=== PATIENT | male | born 1960 | race Caucasian/White ===

== ENCOUNTER 2017-08-09 12:48 | Observation (INO) | payer BC, OTHER ==
[2017-08-09 13:14] VITALS: BMI 41.0
--- NOTE | 2017-08-09 15:38 | PDOC ---
History of Present Illness - History of Present Illness Initial Comments: 08/09/17 16:04 The patient is a 57 year old male, with a significant past medical history of scarlet fever (age 21), who presents to the emergency department with fever, sore throat, diffuse rash for a few days. Patient states that he was given Clindamycin from his dentist on the . He was told to take it for 8 days. He had his tooth pulled on the . He noticed that he became very itchy and rash-like so he saw Dr. Yañez who gave him Atarax for his thrush. Patient states that 5 days ago, he began experiencing flu-like symptoms such as lethargic, chills, diaphoresis, sore throat, nasal congestion, runny nose, spitting up white phlegm. He states that 3 days ago he noticed a non pruritic rash that broke out on his extremities while he was taking a shower. He also admits to experiencing pins and needles on the bottom of his feet and sligh subjective fever. He says these symptoms are similar to his scarlet fever that he had when he was younger. He denies any recent headache or dizziness. He denies any recent nausea, vomit, diarrhea or constipation. He denies any recent chest pain or shortness of breath. He denies any recent dysuria, frequency, urgency or hematuria. Social Hx: Current every day smoker PCP: Julian Yañez <Chelsea Corral - Last Filed: 08/09/17 16:28> <Jony Torres - Last Filed: 08/09/17 16:37> - General Chief Complaint: Cold Symptoms Stated Complaint: PCP SENT Time Seen by Provider: 08/09/17 14:02 Past History <Chelsea Corral - Last Filed: 08/09/17 16:28> - Past Medical History COPD: No HTN: Yes Hypercholesterolemia: Yes - Suicide/Smoking/Psychosocial Hx Smoking History: Current every day smoker Have you smoked in the past 12 months: Yes Number of Cigarettes Smoked Daily: 10 Information on smoking cessation initiated: No <Jony Torres - Last Filed: 08/09/17 16:37> - Past Medical History Allergies/Adverse Reactions: Allergies Allergy/AdvReac Type Severity Reaction Status Date / Time clindamycin Allergy Hives Verified 08/09/17 13:09 Penicillins Allergy Rash Verified 08/09/17 13:09 Review of Systems - Review of Systems Constitutional: Yes: Chills, Fever, Weakness HEENTM: Yes: Nose Congestion, Throat Swelling Respiratory: No: Cough, Shortness of Breath Cardiac (ROS): No: Chest Pain ABD/GI: No: Diarrhea, Vomiting : No: Dysuria, Hematuria Integumentary: Yes: Rash Neurological: No: Headache All Other Systems: Reviewed and Negative <Jony Torres - Last Filed: 08/09/17 16:37> *Physical Exam - Vital Signs Last Vital Signs Temp Pulse Resp BP Pulse Ox 99.5 F 86 19 121/63 96 08/09/17 13:09 08/09/17 13:09 08/09/17 13:09 08/09/17 13:09 08/09/17 13:09 - Physical Exam Comments: 08/09/17 16:04 GENERAL: The patient is awake, alert, and fully oriented, in no acute distress. HEAD: Normal with no signs of trauma. EYES: Pupils equal, round and reactive to light, extraocular movements intact, sclera anicteric, conjunctiva clear with no pallor. ENT: Ears normal, nares patent, oropharynx clear without exudates. Moist mucous membranes. NECK: Normal range of motion, supple without lymphadenopathy, JVD, or masses. LUNGS: Breath sounds equal, clear to auscultation bilaterally. No wheeze/ crackles. HEART: Regular rate and rhythm, normal S1 and S2 without murmur or rub. ABDOMEN: Soft/nontender/nondistended. BS wnl. No guarding or rebound. No palpable masses. No hepatosplenomegaly. EXTREMITIES: Normal range of motion, no edema. No clubbing or cyanosis. No cords, erythema, or tenderness. NEUROLOGICAL: 5/5 strength x4.Cranial nerves II through XII grossly intact. Normal speech, normal gait. PSYCH: Normal mood, normal affect. SKIN: Macular semi-confluent, blanching rash diffusely head, neck, and torso. Warm, Dry, normal turgor, no lesions noted. <Chelsea Corral - Last Filed: 08/09/17 16:28> - Vital Signs Last Vital Signs Temp Pulse Resp BP Pulse Ox 99.5 F 86 19 121/63 96 08/09/17 13:09 08/09/17 13:09 08/09/17 13:09 08/09/17 13:09 08/09/17 13:09 <Jony Torres - Last Filed: 08/09/17 16:37> Heart Score/ECG Review #1 ECG reviewed & interpreted by me at: 16:25 General ECG Interpretation: Sinus Rhythm, Normal Rate (81), Normal Intervals ( IRBBB, qrs 108, qtc 434), No acute ischemic changes <Jony Torres - Last Filed: 08/09/17 16:37> ED Treatment Course - ADDITIONAL ORDERS Additional order review: 08/09/17 15:00 Group A Strep Rapid Antigen - Final Throat - RADIOLOGY Radiograph Interpretation: 08/09/17 16:28 Portable chest x-ray impression: Possible minimal infiltrates in the left mid-lung. Follow-up is needed Reported by: Claritza Waldron <Chelsea Corral - Last Filed: 08/09/17 16:28> - LABORATORY CBC & Chemistry Diagram: 08/09/17 15:50 08/09/17 15:50 - ADDITIONAL ORDERS Additional order review: 08/09/17 15:00 Group A Strep Rapid Antigen - Final Throat - RADIOLOGY Radiology Studies Ordered: Category Date Time Status CHEST X-RAY PORTABLE* [RAD] Stat Radiology 08/09/17 15:08 Ordered <Jony Torres - Last Filed: 08/09/17 16:37> Medical Decision Making - Medical Decision Making 08/09/17 15:35 A portion of this note was documented by scribe services under my direction. I have reviewed the details of the note, within reason, and agree with the documentation with the following case summary and management plan written by me. 57-year-old male with history of scarlet fever at age 21, now sent for admission for further evaluation of febrile syndrome with rash for the last few days. Patient had been treated in with 8 day course of clindamycin for dental infection, subsequently developed a rash with generalized malaise and fever/ chills/night sweats, rash not relieved with Atarax and upon follow-up today with Dr. Yañez, was sent for further evaluation, sepsis workup, and ID eval. VS as noted diffuse macular rash neuro intact 57y/o M with fever and rash. generally well appearing with normal VS. sepsis workup initiated admit to Dr. Yañez, accepted for obs med/surg <Jony Torres - Last Filed: 08/09/17 16:37> *DC/Admit/Observation/Transfer - Attestations Scribe Attestion: 08/09/17 16:06 Documentation prepared by Chelsea Corral, acting as medical equipment repairer for Jony Torres MD. <Chelsea Corral - Last Filed: 08/09/17 16:28> - Discharge Dispostion Admit: Yes <Jony Torres - Last Filed: 08/09/17 16:37> Diagnosis at time of Disposition: Macular erythematous rash Fever Qualifiers: Fever type: unspecified Qualified Code(s): R50.9 - Fever, unspecified - Discharge Dispostion Condition at time of disposition: Fair
[2017-08-09 16:42] LABS: VENOUS BLOOD GAS HCO3 23.7 meq/L (19-25); VENOUS PH 7.41 (7.32-7.42)
[2017-08-09] MEDS ORDERED: SODIUM CHLORIDE 1,000 ML IV ONE (16:46)
[2017-08-09 16:49] LABS: BASOPHIL 0.4 % (0-2.0); EOSINOPHIL 0.6 % (0-4.5); MCH 30.5 pg (25.7-33.7); MCHC 34.3 g/dl (32.0-35.9); MEAN CELL VOLUME 88.9 fl (80-96); MEAN PLT VOLUME 8.2 fl (7.5-11.1); NEUTROPHILS 74.8 % (42.8-82.8); PLATELET COUNT 344 K/MM3 (134-434); RDW 13.5 % (11.9-15.9); WHITE BLOOD COUNT 12.8 K/mm3 (4.0-10.0)
[2017-08-09 16:59] LABS: INR 1.12 (0.82-1.09); PROTHROMBIN TIME (PATIENT) 12.6 SEC (9.98-11.88)
[2017-08-09 17:01] LABS: ACTIVATED PTT 32.4 SECONDS (26.9-34.4)
[2017-08-09 17:08] LABS: URINE APPEARANCE CLEAR; URINE BILIRUBIN NEGATIVE (NEGATIVE); URINE BLOOD 1+ (NEGATIVE); URINE COLOR YELLOW; URINE GLUCOSE (UA) NEGATIVE (NEGATIVE); URINE KETONE NEGATIVE (NEGATIVE); URINE NITRITE NEGATIVE (NEGATIVE); URINE PROTEIN NEGATIVE (NEGATIVE); URINE UROBILINOGEN NEGATIVE mg/dL (0.2-1.0)
[2017-08-09] MEDS ORDERED: ALBUTEROL SO4 2.5/IPRATROPIUM 0.5 INH SOL 3 ML VIAL.NEB. NEB PRN (17:16)
[2017-08-09] MEDS ORDERED: ACETAMINOPHEN 325 MG TABLET (FP) PO PRN (17:16)
--- NOTE | 2017-08-09 17:17 | HP ---
Admitting History and Physical - Primary Care Physician PCP: Julian Yañez - Admission Chief Complaint: SOB/FATIGUE/POOR APPETITE/FEVERS History of Present Illness: PATIENT WAS TREATED 5 DAYS AGO WITH ZPAK FOR COUGH/WHEEZING/FEVERS OUTPATIENT , RETURNED TO MY OFFICE TODAY WITH WORSENING COUGH, POOR APPETITE, UNABLE TO EAT OR DRINK FLUIDS. PATIENT HAS A HISTORY OF SCARLET FEVER AND FEELS THE SAME HE DID WHEN HE HAD IT. HISTORY OF HTN, LIPIDEMIA, TOBACCO SMOKER, OBESITY. History Source: Patient - Past Medical History Cardiovascular: Yes: HTN, Hyperlipdemia - Smoking History Smoking history: Current every day smoker Have you smoked in the past 12 months: Yes Aproximately how many cigarettes per day: 10 Home Medications - Allergies Allergies/Adverse Reactions: Allergies Allergy/AdvReac Type Severity Reaction Status Date / Time clindamycin Allergy Hives Verified 08/09/17 13:09 Penicillins Allergy Rash Verified 08/09/17 13:09 - Home Medications Home Medications: Ambulatory Orders Clopidogrel Bisulfate [Plavix -] 75 mg PO DAILY 08/09/17 Enalapril Maleate 5 mg PO DAILY 08/09/17 Simvastatin [Zocor -] 40 mg PO HS 08/09/17 Review of Systems - Review of Systems Constitutional: reports: Loss of Appetite, Weakness Eyes: reports: No Symptoms HENT: reports: No Symptoms Neck: reports: No Symptoms Cardiovascular: reports: Shortness of Breath Respiratory: reports: Cough, SOB Gastrointestinal: reports: Indigestion Genitourinary: reports: No Symptoms Musculoskeletal: reports: Muscle Cramps, Muscle Weakness Integumentary: reports: Erythema Neurological: reports: No Symptoms Endocrine: reports: No Symptoms Hematology/Lymphatic: reports: No Symptoms Psychiatric: reports: No Symptoms Physical Examination Vital Signs: Vital Signs Temperature 98.7 F 08/09/17 16:54 Pulse Rate 81 08/09/17 16:53 Respiratory Rate 20 08/09/17 16:53 Blood Pressure 109/69 08/09/17 16:53 O2 Sat by Pulse Oximetry (%) 96 08/09/17 16:53 Constitutional: Yes: Moderate Distress Eyes: Yes: WNL HENT: Yes: WNL Neck: Yes: WNL Cardiovascular: Yes: WNL Respiratory: Yes: Cough, Rhonchi Gastrointestinal: Yes: WNL Renal/: Yes: WNL Musculoskeletal: Yes: Muscle Weakness Extremities: Yes: WNL Edema: No Peripheral Pulses WNL: Yes Integumentary: Yes: Erythema, Rash Wound/Incision: Yes: Open to air Neurological: Yes: WNL ...Motor Strength: WNL Psychiatric: Yes: WNL Labs: CBC, BMP 08/09/17 15:50 Imaging - Results Chest X-ray: Report Reviewed Problem List - Problems (1) Lung abnormality Code(s): J98.4 - OTHER DISORDERS OF LUNG (2) Lipidemia Code(s): E78.5 - HYPERLIPIDEMIA, UNSPECIFIED Qualifiers: Hyperlipidemia type: mixed hyperlipidemia Qualified Code(s): E78.2 - Mixed hyperlipidemia (3) High triglycerides Code(s): E78.1 - PURE HYPERGLYCERIDEMIA (4) Hypertension Code(s): I10 - ESSENTIAL (PRIMARY) HYPERTENSION Qualifiers: Hypertension type: essential hypertension Qualified Code(s): I10 - Essential (primary) hypertension (5) Smoker Code(s): F17.200 - NICOTINE DEPENDENCE, UNSPECIFIED, UNCOMPLICATED (6) Fever Code(s): R50.9 - FEVER, UNSPECIFIED Qualifiers: Fever type: unspecified Qualified Code(s): R50.9 - Fever, unspecified (7) Macular erythematous rash Code(s): L53.8 - OTHER SPECIFIED ERYTHEMATOUS CONDITIONS Assessment/Plan BLOOD CULTURES LUNG ABNORMALITY ON CXR CHECK CT SCAN LUNGS PULMONARY EVAL ID CONSULT STEROIDS IV IVF
--- NOTE | 2017-08-09 17:33 | PN ---
Progress Note (short form) - Note Progress Note: ID consult dictated imp/reccd 57 year old man admitted for lethargy and wakness he reports he has not been to work for last 6 days poor appetite, rash on arms and upper legs, "nails on soles of feet" no fevers +cough for 4 days recent course of clindamycin 07/25-to 07/31 had a tooth pulled 08/02 on the became itch saw Dr Yañez on , strep screen negative, given atarax, itchiness went away now notes he has sore throat and cough active smoker no travel no sick contacts PE notable for no conjunctivitis no exudative pharyngitis no adenopathy no oral lesions some patchy maculpapular rash on the forearms, no rash on legs suggest cultures cxray pa and lateral f/u labs - all still pending IVF hold antibiotics no fevers negative strep screen
[2017-08-09 17:51] LABS: ALBUMIN 3.7 g/dl (3.4-5.0); ALK PHOS 70 U/L (45-117); ANION GAP 11 (8-16); BILIRUBIN,TOTAL 0.6 mg/dL (0.2-1.0); CALCIUM 9.3 mg/dL (8.5-10.1); CO2 23 mmol/L (21-32); CPK 205 IU/L (39-308); CREATININE 1.3 mg/dL (0.7-1.3); GLUCOSE,RANDOM 100 mg/dL (74-106); SGPT/ALT 20 U/L (12-78); TOT PROT 7.3 g/dl (6.4-8.2); TROPONIN I < 0.02 ng/ml (0.00-0.05)
[2017-08-09] MEDS ORDERED: methylPREDNISolone NA SUCC 40 MG/1 ML VIAL ONE (18:02)
[2017-08-09 18:07] LABS: SGOT/AST 22 U/L (15-37)
[2017-08-09] MEDS: methylPREDNISolone NA SUCC 40 MG/1 ML VIAL IVPUSH SCH (18:07)
[2017-08-09 20:44] LABS: URINE MUCUS RARE; URINE WBC 1 /hpf (3-5)
[2017-08-09 22:18] LABS: URINE LEUK ESTERASE Negative (NEGATIVE)
[2017-08-09] MEDS: FAMOTIDINE IV 20 MG/12 ML VIAL IVPUSH SCH (23:06)
[2017-08-10] MEDS: methylPREDNISolone NA SUCC 40 MG/1 ML VIAL IVPUSH SCH ×2 (02:07→10:08)
[2017-08-10] MEDS ORDERED: SODIUM CHLORIDE 1,000 ML IV SCH (07:45)
[2017-08-10] MEDS ORDERED: LEVOFLOXACIN 500 MG IVPB 500 MG/100 ML BAG IVPB SCH (10:00)
[2017-08-10] MEDS: FAMOTIDINE IV 20 MG/12 ML VIAL IVPUSH SCH (10:09)
[2017-08-10 11:40] VITALS: TEMP 98.2
[2017-08-10 15:05] VITALS: BP 134/72; PULSE 75
--- NOTE | 2017-08-10 15:11 | DS ---
Physical Examination Vital Signs: Vital Signs Temperature 98.2 F 08/10/17 15:04 Pulse Rate 75 08/10/17 15:04 Respiratory Rate 18 08/10/17 15:04 Blood Pressure 134/72 08/10/17 15:04 O2 Sat by Pulse Oximetry (%) 96 08/10/17 04:00 Constitutional: Yes: No Distress Eyes: Yes: WNL HENT: Yes: WNL Neck: Yes: WNL Cardiovascular: Yes: WNL Respiratory: Yes: Wheezes Gastrointestinal: Yes: WNL Renal/: Yes: WNL Musculoskeletal: Yes: WNL Extremities: Yes: WNL Edema: No Peripheral Pulses WNL: Yes Integumentary: Yes: WNL Wound/Incision: Yes: Clean/Dry Neurological: Yes: WNL ...Motor Strength: WNL Psychiatric: Yes: WNL Labs: CBC, BMP 08/09/17 15:50 08/09/17 15:50 Discharge Summary Reason For Visit: FEVER Current Active Problems Fever (Acute) High triglycerides (Acute) Hypertension (Acute) Lipidemia (Acute) Lung abnormality (Acute) Macular erythematous rash (Acute) Smoker (Acute) Procedures: Principal: CT CHEST Hospital Course: ADMITTED ACUTE PNEUMONIA, TREATED IV ABX STEROIDS IV, CHANGED TOORAL LEVAQUIN AND PREDNISONE. F/U OUTPATIENT Condition: Fair - Instructions Diet, Activity, Other Instructions: LOW FAT/SALT SEE DR SANDS 1 WEEK Disposition: HOME - Home Medications Comprehensive Discharge Medication List: Ambulatory Orders Clopidogrel Bisulfate [Plavix -] 75 mg PO DAILY 08/09/17 Enalapril Maleate 5 mg PO DAILY 08/09/17 Simvastatin [Zocor -] 40 mg PO HS 08/09/17 Acetaminophen [Tylenol .Regular Strength -] 650 mg PO Q6H PRN tablet 08/10/17 Albuterol 2.5/Ipratropium 0.5 [Duoneb -] 1 amp NEB Q6H PRN amp 08/10/17 Levofloxacin [Levaquin] 500 mg PO DAILY #6 tablet 08/10/17 Prednisone [Deltasone -] 20 mg PO DAILY #5 tablet 08/10/17
--- NOTE | 2017-08-10 19:22 | CONS ---
INFECTIOUS DISEASE CONSULTATION DATE OF CONSULTATION: 08/09/2017 REQUESTING PHYSICIAN: Julian Yañez MD HISTORY OF PRESENT ILLNESS: This is a 57-year-old man who presented to the emergency room complaining of lethargy and myalgia for the prior 6 days. Originally, back from the to the , he took some clindamycin for some dental work. The , he had a tooth pulled with much improvement. On the , he started feeling itchy and developed a rash; for which, he was given Atarax. He was noted to have some possible thrush and given some nystatin swish and swallow. He then felt better, but then, several days later, developed weakness and lethargy and cough. He has not been to work for 6 days. He had a strep screen done that was negative. He now notes that he has a rash on the arms and upper legs and feels like there are nails on the soles of his feet. He has had no fever. He has a cough with white sputum for the last 4 days. He is an active smoker. No travel or sick contacts. PAST MEDICAL HISTORY: Notable for hypertension, hyperlipidemia, reports a history of scarlet fever at age 21. MEDICATIONS AT HOME: Include Plavix, enalapril, and Zocor. SOCIAL HISTORY: He lives in [place]. He works as a wheat combine driver. He has no sick contacts. There is no recent travel. His and kids are well. REVIEW OF SYSTEMS: Notable for lethargy and loss of appetite and weakness. He has had no joint swellings. He is monogamous, and he has no sore throat, though he complains of dryness in his mouth. PHYSICAL EXAMINATION: Vital Signs: He is afebrile, temperature is 98.7. Pulse of 81, blood pressure 109/69, respiratory rate is 20. HEENT: He is normocephalic. His eyes are anicteric. He has no exudative pharyngitis. He has no thrush. Neck: He has no cervical lymphadenopathy. Neck is supple. Lungs: Have scattered rhonchi, occasional wheeze. Heart: Regular rate and rhythm. Abdomen: Soft, nontender. Extremities: Without edema. Skin: He has some scattered maculopapular rash on his forearms. He has no rash on his abdomen or back. He has some erythema at the back of his head. He has no conjunctivitis. He has no oral lesions, and he has no adenopathy. DIAGNOSTIC DATA: His labs were all pending at the time of evaluation, and his strep screen is negative. In summary, would suggest at this time that we obtain cultures, get chest x-ray PA and lateral, follow up the labs, IV fluids as he appears dehydrated, with further recommendations to follow based on his clinical course. Case was discussed with Dr. Yañez. Mikey [id number]
--- NOTE | 2017-08-11 07:54 | EKG ---
Test Reason : Blood Pressure : / mmHG Vent. Rate : 081 BPM Atrial Rate : 081 BPM P-R Int : 166 ms QRS Dur : 108 ms QT Int : 374 ms P-R-T Axes : 054 048 042 degrees QTc Int : 434 ms NORMAL SINUS RHYTHM INCOMPLETE RIGHT BUNDLE BRANCH BLOCK BORDERLINE ECG NO PREVIOUS ECGS AVAILABLE Confirmed by MD Alegre Daniel ([id number]) on 08/10/2017 2:58:27 PM Also confirmed by MD Alegre Daniel ([id number]), staff editor ROSY ROMAN ([id number]) on 08/11/2017 7:54:18 AM Referred By: Confirmed By:Rosy Alegre MD
== END 2017-08-10 15:47 | disposition home or self-care (01) ==
LOC: JER 12:48 → JERFT 12:48 → JERBED 15:09 → J5S 20:33
PROVIDERS: ADMIT Family Medicine; ATTEND Family Medicine
PROC: 3E0337Z Introduction of Electrolytic and Water Balance Substance into Peripheral Vein, Percutaneous Approach (ICD-10-PCS; principal; 2017-08-09)
PROC: 3E03329 Introduction of Other Anti-infective into Peripheral Vein, Percutaneous Approach (ICD-10-PCS; 2017-08-09)
PROC: 3E033GC Introduction of Other Therapeutic Substance into Peripheral Vein, Percutaneous Approach (ICD-10-PCS; 2017-08-09)
PROC: 3E0333Z Introduction of Anti-inflammatory into Peripheral Vein, Percutaneous Approach (ICD-10-PCS; 2017-08-09)
DX: J18.9 Pneumonia, unspecified organism (principal); J98.4 Other disorders of lung; I10 Essential (primary) hypertension; E78.5 Hyperlipidemia, unspecified; E78.1 Pure hyperglyceridemia; F17.200 Nicotine dependence, unspecified, uncomplicated
CPT/HCPCS: 36415; 71010-TC; 71020-TC; 71250-TC; 80053; 81003; 81015; 82550; 82553; 82803; 83605; 84484; 85025; 85610; 85651; 85730; 86140; 86850; 86900; 86901; 87040; 87070; 87086; 87430; 93005; 93010; 99285-25; G0378

== ENCOUNTER 2023-07-15 04:13 | Inpatient (IN) | payer BC, OTHER ==
[2023-07-15] MEDS ORDERED: VANCOMYCIN 1,000 MG VIAL (RESTRICTED TO ID ONLY) ONE (08:36)
[2023-07-15] MEDS ORDERED: GENTAMICIN SO4 80 MG/2 ML VIAL ONE (08:36)
[2023-07-15] MEDS ORDERED: LIDOCAINE HCL 1%, 10 MG/ML (20ML VIAL) ONE (08:40)
[2023-07-15] MEDS ORDERED: HEPARIN NA (PORCINE) 5,000 UNITS/ML 1ML VIAL ONE (09:23)
[2023-07-15] MEDS ORDERED: VANCOMYCIN 1,000 MG VIAL (RESTRICTED TO ID ONLY) IVPB ONE (11:00)
[2023-07-15] MEDS ORDERED: ROPIVACAINE HCL 0.5% 30ML VIAL ONE (12:18)
[2023-07-15] MEDS ORDERED: POVIDONE-IODINE OINTMENT 10% - 28.4 GM TUBE TP ONE (14:10)
[2023-07-15] MEDS ORDERED: PROTAMINE SULFATE 50 MG/5 ML VIAL ONE (14:15)
[2023-07-15] MEDS ORDERED: GENTAMICIN SO4 80 MG/2 ML VIAL IVPB ONE (14:16)
[2023-07-15] MEDS ORDERED: ONDANSETRON 4 MG/2 ML VIAL ONE (14:43)
[2023-07-15] MEDS ORDERED: GLYCOPYRROLATE 0.2 MG/1 ML VIAL ONE ×3 (14:43→14:53)
[2023-07-15] MEDS ORDERED: NEOSTIGMINE METHYLSULFATE 0.5 MG/1 ML - 10 ML MDV ONE (14:43)
[2023-07-15] MEDS ORDERED: POVIDONE-IODINE OINTMENT 10% - 28.4 GM TUBE ONE (14:48)
[2023-07-15] MEDS ORDERED: ONDANSETRON 4 MG/2 ML VIAL IVPUSH PRN ×2 (15:24)
[2023-07-15] MEDS ORDERED: HYDROmorphone *PCA* 10MG/50ML DISP.SYRIN ONE (15:52)
[2023-07-15] MEDS: HYDROmorphone *PCA* 10MG/50ML DISP.SYRIN PCA SCH (16:00)
[2023-07-15] MEDS ORDERED: ACETAMINOPHEN INJECTION 100 ML IVPB ONE (16:25)
[2023-07-15] MEDS: ACETAMINOPHEN 1000 MG/100 ML BAG IVPB SCH ×2 (16:30→23:10)
[2023-07-15] MEDS: AZTREONAM 1 GM in DEXTROSE 5%-WATER - 50 ML IVPB SCH (18:00)
[2023-07-15] MEDS: LACTATED RINGERS SOLUTION 1,000 ML IV SCH ×2 (20:56→23:43)
[2023-07-15 21:09] LABS: BASO % 0.2 % (0-2.0); HEMATOCRIT 52.7 % (35.4-49); LYMPH % 2.9 % (8-40); MCH 29.9 pg (25.7-33.7); MCHC 32.3 g/dl (32.0-35.9); MEAN CELL VOLUME 92.4 fl (80-96); MEAN PLT VOLUME 7.8 fl (7.5-11.1); MONO % 10.4 % (3.8-10.2); NEUT % 86.5 % (42.8-82.8); PLATELET COUNT 199 10^3/uL (134-434); RDW 15.3 % (11.9-15.9); WHITE BLOOD COUNT 19.4 K/mm3 (4.0-10.0)
[2023-07-15] MEDS ORDERED: VANCOMYCIN 1,000 MG in DEXTROSE 5%-WATER - 100 ML IVPB SCH (22:00)
[2023-07-15 22:16] VITALS: BMI 29.1
[2023-07-16] MEDS: AZTREONAM 1 GM in DEXTROSE 5%-WATER - 50 ML IVPB SCH ×3 (05:01→23:11)
[2023-07-16] MEDS: LACTATED RINGERS SOLUTION 1,000 ML IV SCH ×4 (05:02→18:25)
[2023-07-16] MEDS ORDERED: ALBUMIN HUMAN 5% 250 ML IV SOLUTION IV ONE (06:55)
[2023-07-16] MEDS ORDERED: ALBUMIN HUMAN 5% 500 ML IV SOLUTION IV ONE (07:15)
[2023-07-16 07:35] LABS: BASO % 0.1 % (0-2.0); HEMATOCRIT 50.4 % (35.4-49); HEMOGLOBIN 16.1 GM/dL (11.7-16.9); LYMPH % 5.1 % (8-40); MCH 29.8 pg (25.7-33.7); MEAN CELL VOLUME 93.1 fl (80-96); MEAN PLT VOLUME 8.2 fl (7.5-11.1); MONO % 12.5 % (3.8-10.2); NEUT % 82.3 % (42.8-82.8); PLATELET COUNT 200 10^3/uL (134-434); RBC 5.41 M/mm3 (4.00-5.60); RDW 15.5 % (11.9-15.9); WHITE BLOOD COUNT 14.3 K/mm3 (4.0-10.0)
[2023-07-16] MEDS: ACETAMINOPHEN 1000 MG/100 ML BAG IVPB SCH ×3 (07:56→23:12)
[2023-07-16 09:10] LABS: POTASSIUM 5.6 mmol/L (3.5-5.1)
[2023-07-16 09:16] LABS: CREATININE 2.3 mg/dL (0.55-1.3)
[2023-07-16 09:18] LABS: BILIRUBIN,TOTAL 0.5 mg/dL (0.2-1)
[2023-07-16 09:19] LABS: ALBUMIN 2.7 g/dl (3.4-5.0); CALCIUM 7.6 mg/dL (8.5-10.1); TOT PROT 5.2 g/dl (6.4-8.2)
[2023-07-16] MEDS ORDERED: CLOPIDOGREL BISULFATE 75 MG TABLET (FP) PO SCH ×2 (10:00)
[2023-07-16] MEDS ORDERED: amLODIPine BESYLATE 5 MG TABLET (FP) PO SCH ×2 (10:00)
[2023-07-16] MEDS ORDERED: VANCOMYCIN/WATER FOR INJ (PEG) 1,000 MG/200 ML BAG IVPB SCH (11:00)
[2023-07-16] MEDS ORDERED: ALBUMIN HUMAN 25% 12.5 GM/50 ML VIAL IV SCH (11:30)
[2023-07-16] MEDS ORDERED: AZTREONAM 1 GM in DEXTROSE 5%-WATER - 50 ML IVPB SCH (17:00)
[2023-07-16 17:31] LABS: CHLORIDE 109 mmol/L (98-107); POTASSIUM 4.3 mmol/L (3.5-5.1)
[2023-07-16 17:33] LABS: CO2 11 mmol/L (21-32); GLUCOSE,RANDOM 57 mg/dL (74-106)
[2023-07-16 17:36] LABS: CREATININE 0.7 mg/dL (0.55-1.3)
[2023-07-16 17:38] LABS: ANION GAP 14 mmol/L (4-13); CALCIUM 6.3 mg/dL (8.5-10.1); SODIUM 135 mmol/L (136-145)
[2023-07-16] MEDS ORDERED: CALCIUM GLUC IN NACL, ISO-OSM 1 GM/50 ML BAG IVPB ONE (18:10)
[2023-07-16 18:24] LABS: EPI CELLS 10 /uL (0-25.1); HYALINE CASTS 3 /uL (0-3.1); PH,URINE 5.5 (5.0-8.0); URINE APPEARANCE CLEAR; URINE BACTERIA 7 /uL (0-1359); URINE BILIRUBIN NEGATIVE (NEGATIVE); URINE COLOR YELLOW; URINE GLUCOSE (UA) NEGATIVE (NEGATIVE); URINE KETONE NEGATIVE (NEGATIVE); URINE LEUK ESTERASE NEGATIVE (NEGATIVE); URINE NITRITE NEGATIVE (NEGATIVE); URINE PROTEIN 3+ (NEGATIVE); URINE RBC 316 /uL (0-23.9); URINE UROBILINOGEN 0.2 mg/dL (0.2-1.0); URINE WBC 8 /uL (0-25.8)
[2023-07-16] MEDS: HEPARIN NA (PORCINE) 5,000 UNITS/ML 1ML VIAL SQ SCH (21:13)
[2023-07-16] MEDS: HYDROmorphone *PCA* 10MG/50ML DISP.SYRIN PCA SCH (23:28)
[2023-07-17] MEDS ORDERED: ONDANSETRON 4 MG/2 ML VIAL IVPUSH PRN (08:30)
[2023-07-17 09:39] LABS: BASO % 0.1 % (0-2.0); EOS % 0.1 % (0-4.5); HEMOGLOBIN 13.3 GM/dL (11.7-16.9); LYMPH % 5.6 % (8-40); MCH 30.4 pg (25.7-33.7); MCHC 34.2 g/dl (32.0-35.9); MEAN CELL VOLUME 88.8 fl (80-96); MEAN PLT VOLUME 7.8 fl (7.5-11.1); MONO % 12.7 % (3.8-10.2); NEUT % 81.5 % (42.8-82.8); PLATELET COUNT 156 10^3/uL (134-434); RBC 4.39 M/mm3 (4.00-5.60); RDW 14.7 % (11.9-15.9); WHITE BLOOD COUNT 13.1 K/mm3 (4.0-10.0)
[2023-07-17 09:48] LABS: POTASSIUM 4.2 mmol/L (3.5-5.1)
[2023-07-17] MEDS: CLOPIDOGREL BISULFATE 75 MG TABLET (FP) PO SCH (09:50)
[2023-07-17] MEDS: amLODIPine BESYLATE 5 MG TABLET (FP) PO SCH (09:51)
[2023-07-17] MEDS: HEPARIN NA (PORCINE) 5,000 UNITS/ML 1ML VIAL SQ SCH ×2 (09:51→21:11)
[2023-07-17 10:04] LABS: ALBUMIN 2.4 g/dl (3.4-5.0); BLOOD UREA NITROGEN 34.6 mg/dL (7-18)
[2023-07-17 10:05] LABS: MAGNESIUM 1.9 mg/dL (1.8-2.4)
[2023-07-17 10:07] LABS: PHOSPHOROUS 2.7 mg/dL (2.5-4.9)
[2023-07-17 10:08] LABS: CREATININE 1.9 mg/dL (0.55-1.3)
[2023-07-17 10:09] LABS: BILIRUBIN,TOTAL 0.8 mg/dL (0.2-1); TOT PROT 4.8 g/dl (6.4-8.2)
[2023-07-17 10:12] LABS: CALCIUM 8.1 mg/dL (8.5-10.1)
[2023-07-17] MEDS: HYDROmorphone *PCA* 10MG/50ML DISP.SYRIN PCA SCH (11:52)
[2023-07-17] MEDS: AZTREONAM 1 GM in DEXTROSE 5%-WATER - 50 ML IVPB SCH ×2 (11:58→18:41)
[2023-07-17] MEDS ORDERED: FUROSEMIDE 40 MG/4 ML INJECTABLE VIAL IVPUSH ONE (14:41)
[2023-07-17] MEDS: LACTATED RINGERS SOLUTION 1,000 ML IV SCH (19:04)
[2023-07-17] MEDS: FLUTICASONE PROP 0.05% 16 GM NASAL SPRAY NS SCH (21:11)
[2023-07-18] MEDS: AZTREONAM 1 GM in DEXTROSE 5%-WATER - 50 ML IVPB SCH ×2 (01:59→09:29)
[2023-07-18] MEDS: LACTATED RINGERS SOLUTION 1,000 ML IV SCH (06:19)
[2023-07-18] MEDS: CLOPIDOGREL BISULFATE 75 MG TABLET (FP) PO SCH (09:27)
[2023-07-18] MEDS: amLODIPine BESYLATE 5 MG TABLET (FP) PO SCH (09:28)
[2023-07-18] MEDS: FLUTICASONE PROP 0.05% 16 GM NASAL SPRAY NS SCH ×2 (09:28→21:49)
[2023-07-18] MEDS: HEPARIN NA (PORCINE) 5,000 UNITS/ML 1ML VIAL SQ SCH ×2 (09:29→21:48)
[2023-07-18 09:52] LABS: BASO % 0.4 % (0-2.0); EOS % 0.4 % (0-4.5); HEMATOCRIT 37.3 % (35.4-49); HEMOGLOBIN 12.3 GM/dL (11.7-16.9); LYMPH % 9.2 % (8-40); MCH 30.2 pg (25.7-33.7); MEAN CELL VOLUME 91.6 fl (80-96); MEAN PLT VOLUME 8.1 fl (7.5-11.1); MONO % 10.2 % (3.8-10.2); NEUT % 79.8 % (42.8-82.8); PLATELET COUNT 171 10^3/uL (134-434); RBC 4.07 M/mm3 (4.00-5.60); RDW 14.5 % (11.9-15.9)
[2023-07-18 10:13] LABS: ALBUMIN 2.1 g/dl (3.4-5.0); BLOOD UREA NITROGEN 24.3 mg/dL (7-18)
[2023-07-18 10:16] LABS: CREATININE 1.4 mg/dL (0.55-1.3)
[2023-07-18 10:17] LABS: TOT PROT 4.8 g/dl (6.4-8.2)
[2023-07-18 10:18] LABS: BILIRUBIN,TOTAL 0.6 mg/dL (0.2-1)
[2023-07-18] MEDS: HYDROmorphone *PCA* 10MG/50ML DISP.SYRIN PCA SCH (17:07)
[2023-07-19] MEDS: HYDROmorphone *PCA* 10MG/50ML DISP.SYRIN PCA SCH (06:08)
[2023-07-19] MEDS: LACTATED RINGERS SOLUTION 1,000 ML IV SCH ×2 (06:17→23:27)
[2023-07-19] MEDS ORDERED: oxyCODONE HCL 5 MG TABLET PO PRN (08:13)
[2023-07-19] MEDS ORDERED: DOCUSATE SODIUM 100 MG CAPSULE (FP) PO PRN (08:13)
[2023-07-19] MEDS: amLODIPine BESYLATE 5 MG TABLET (FP) PO SCH (10:04)
[2023-07-19] MEDS: HEPARIN NA (PORCINE) 5,000 UNITS/ML 1ML VIAL SQ SCH ×2 (10:04→22:17)
[2023-07-19] MEDS: CLOPIDOGREL BISULFATE 75 MG TABLET (FP) PO SCH (10:04)
[2023-07-19] MEDS: FLUTICASONE PROP 0.05% 16 GM NASAL SPRAY NS SCH ×2 (10:04→22:19)
[2023-07-19] MEDS: ACETAMINOPHEN 325 MG TABLET (FP) PO PRN ×2 (11:44→21:31)
[2023-07-20] MEDS: ACETAMINOPHEN 325 MG TABLET (FP) PO PRN (06:35)
[2023-07-20 07:17] VITALS: PULSE 76
[2023-07-20 08:32] LABS: HEMATOCRIT 37.9 % (35.4-49); HEMOGLOBIN 12.6 GM/dL (11.7-16.9); MCH 30.2 pg (25.7-33.7); MCHC 33.3 g/dl (32.0-35.9); MEAN CELL VOLUME 90.9 fl (80-96); MEAN PLT VOLUME 7.7 fl (7.5-11.1); PLATELET COUNT 292 10^3/uL (134-434); RBC 4.16 M/mm3 (4.00-5.60); RDW 14.2 % (11.9-15.9); WHITE BLOOD COUNT 8.4 K/mm3 (4.0-10.0)
[2023-07-20 08:41] LABS: POTASSIUM 3.9 mmol/L (3.5-5.1)
[2023-07-20 08:46] LABS: CALCIUM 8.2 mg/dL (8.5-10.1)
[2023-07-20 08:47] LABS: BLOOD UREA NITROGEN 23.4 mg/dL (7-18); MAGNESIUM 2.3 mg/dL (1.8-2.4)
[2023-07-20 08:50] LABS: CREATININE 1.3 mg/dL (0.55-1.3)
[2023-07-20] MEDS: HEPARIN NA (PORCINE) 5,000 UNITS/ML 1ML VIAL SQ SCH (09:48)
[2023-07-20] MEDS: amLODIPine BESYLATE 5 MG TABLET (FP) PO SCH (09:48)
[2023-07-20] MEDS: CLOPIDOGREL BISULFATE 75 MG TABLET (FP) PO SCH (09:48)
[2023-07-20] MEDS: FLUTICASONE PROP 0.05% 16 GM NASAL SPRAY NS SCH (09:49)
[2023-07-20 15:40] VITALS: BP 144/81; RESP 20; TEMP 98.1
== END 2023-07-20 16:40 | disposition home or self-care (01) | DRG 253 ==
LOC: J2C 04:13 → JICU 20:07 → J8W 07-17 03:21
PROVIDERS: ADMIT Family Medicine; ATTEND Family Medicine
PROC: 30233N1 Transfusion of Nonautologous Red Blood Cells into Peripheral Vein, Percutaneous Approach (ICD-10-PCS; 2023-07-15)
PROC: 04Q00ZZ Repair Abdominal Aorta, Open Approach (ICD-10-PCS; principal; 2023-07-15 09:00)
DX: I71.40 Abdominal aortic aneurysm, without rupture, unspecified (principal); N17.9 Acute kidney failure, unspecified; E78.5 Hyperlipidemia, unspecified; I10 Essential (primary) hypertension; E87.5 Hyperkalemia; G89.18 Other acute postprocedural pain; E78.1 Pure hyperglyceridemia; I72.3 Aneurysm of iliac artery; F17.200 Nicotine dependence, unspecified, uncomplicated; D64.9 Anemia, unspecified
CPT/HCPCS: 36415; 71045-TC-FY; 80048; 80053; 81003; 82436; 82570; 83735; 84100; 84133; 84300; 85025; 85027; 87635; 94760; 97116-GP; C1768; J1644; P9047; P9058